=== PATIENT | female | born 1950 | race Caucasian/White ===

== ENCOUNTER → 2016-11-22 | Outpatient (CLI) | payer OTHER ==
--- NOTE | 2016-11-22 09:36 | US ---
Limited Right Upper Quadrant Ultrasound History: 66-year-old with elevated LFTs. Comparison: None available. Findings: The liver is mildly diffusely echogenic with no focal hepatic masses. There may be minimal central intrahepatic biliary dilatation. The common bile duct measures 10 mm with no visible choledoc holithiasis. The gallbladder is distended, measuring up to 10.5 cm. The right kidney measures 9.5 cm and has normal echotexture and contour without hydronephrosis. The visible aorta is normal caliber. The visible portions of the pancreas are diffusely echogenic with limited visualization of the pancre atic head and tail. Impression: 1. Mildly distended otherwise normal gallbladder with common bile duct dilatation. Consider MRCP or E [facility] [employer] [facility] for further evaluation. 2. Probable mild fatty infiltration of the liver. 3. Echogenic pancreas, which could be related to atrophy and fatty replacement.
== END ==
LOC: CIMAGING 08:26
PROVIDERS: ATTEND Family Medicine
DX: R79.89 Other specified abnormal findings of blood chemistry (principal)
CPT/HCPCS: 76705-PO

== ENCOUNTER → 2017-08-27 | Outpatient (CLI) | payer OTHER | LOC: BRMIMAGING 13:42 | PROVIDERS: ATTEND Family Medicine | DX: Z13.820 Encounter for screening for osteoporosis (principal); Z78.0 Asymptomatic menopausal state; M81.0 Age-related osteoporosis without current pathological fracture | CPT/HCPCS: G0202 ==

== ENCOUNTER → 2017-09-27 | Outpatient (CLI) | payer OTHER | LOC: CIMAGING 08:18 | PROVIDERS: ATTEND Family Medicine | DX: M25.851 Other specified joint disorders, right hip (principal); M25.852 Other specified joint disorders, left hip | CPT/HCPCS: 72100-PO; 72170-PO ==

== ENCOUNTER → 2018-10-08 | Outpatient (CLI) | payer OTHER | LOC: BRMIMAGING 11:29 | PROVIDERS: ATTEND Family Medicine | DX: Z12.31 Encounter for screening mammogram for malignant neoplasm of breast (principal) ==

== ENCOUNTER → 2018-12-04 | Outpatient (CLI) | payer OTHER | LOC: CIMAGING 15:09 | PROVIDERS: ATTEND Family Medicine | DX: M53.3 Sacrococcygeal disorders, not elsewhere classified (principal); M51.36 Other intervertebral disc degeneration, lumbar region; M51.37 Other intervertebral disc degeneration, lumbosacral region; M41.86 Other forms of scoliosis, lumbar region | CPT/HCPCS: 72100-PO; 72170-PO ==